=== PATIENT | male | born 1975 | race Caucasian/White ===

== ENCOUNTER 2020-10-27 12:14 | Emergency (ER) | payer SELFPAY ==
[2020-10-27 14:02] LABS: HEMOGLOBIN 17.6 gm/dl (14.0-17.5); RED BLOOD COUNT 5.66 M/UL (4.20-5.50)
[2020-10-27 14:29] LABS: BUN/CREATININE RATIO 16 (0-10)
== END 2020-10-27 17:15 | disposition home or self-care (01) ==
LOC: ER1 12:14
PROVIDERS: Physician Assistant
DX: R07.9 Chest pain, unspecified (principal); M79.602 Pain in left arm; I10 Essential (primary) hypertension; F17.200 Nicotine dependence, unspecified, uncomplicated; Z88.0 Allergy status to penicillin
CPT/HCPCS: 70491; 71045; 80053; 82550; 82553; 83874; 84484; 85025; 85379; 93005; 99285; Q9967